=== PATIENT | female | born 1975 | race Asian ===

== ENCOUNTER 2018-08-14 16:31 | Emergency (ER) | payer OTHER ==
[~2018-08-14] VITALS: Ht 160 cm; Wt 49.0 kg
[2018-08-14 16:36] VITALS: Ht 160 cm; Wt 49.0 kg
[2018-08-14 19:19] VITALS: BP 101/58
== END 2018-08-14 19:19 | disposition home or self-care (01) ==
LOC: ED 16:31
DX: S93.401A Sprain of unspecified ligament of right ankle, initial encounter (principal); X50.1XXA Overexertion from prolonged static or awkward postures, initial encounter; Y93.39 Activity, other involving climbing, rappelling and jumping off; Y92.830 Public park as the place of occurrence of the external cause; Y99.8 Other external cause status
CPT/HCPCS: Q0092